=== PATIENT | female | born 1995 | race Two or more races ===

== ENCOUNTER 2021-12-18 13:54 | Emergency (ER) | payer OTHER ==
[~2021-12-18] VITALS: Ht 157.5 cm; Wt 61.2 kg
== END 2021-12-18 18:41 | disposition home or self-care (01) ==
LOC: ER 13:54
DX: U07.1 COVID-19 (principal); J45.998 Other asthma

== ENCOUNTER 2021-12-22 08:47 | Outpatient (CLI) | payer OTHER | END 2021-12-22 10:10 | disposition home or self-care (01) | LOC: ASH CLINIC 08:47 | PROVIDERS: ATTEND General Practice | DX: U07.1 COVID-19 (principal) ==